=== PATIENT | female | born 1980 | race Hispanic/Latino ===

== ENCOUNTER 2018-04-29 13:07 | Emergency (ER) | payer OTHER ==
[2018-04-29 13:25] LABS: BASOPHILS % (AUTO) 1.1 % (0.0-5.0); LYMPHOCYTES % (AUTO) 56.5 % (21.0-51.0); MEAN CORPUSCULAR HEMOGLOBIN 31.1 pg (27.0-33.0); MEAN CORPUSCULAR HGB CONC 34.4 g/dL (32.0-36.0); MEAN CORPUSCULAR VOLUME 90.3 fL (79-99); MONOCYTES % (AUTO) 7.8 % (3.0-13.0); NEUTROPHILS % (AUTO) 30.6 % (40.0-77.0); NUCLEATED RED BLOOD CELLS 0.1 % (0.0-0.19); PLATELET COUNT (AUTO) 283 K/uL (130-400); RED BLOOD CELL COUNT(AUTO) 4.21 MIL/uL (4.00-5.50); RED CELL DISTRIBUTION WIDTH 14.6 % (11.0-15.5); WHITE BLOOD COUNT (AUTO) 5.2 K/uL (4.8-10.8)
[2018-04-29 13:35] LABS: CREATININE 0.6 mg/dL (0.5-1.5); POTASSIUM 3.7 mmol/L (3.5-5.1)
[2018-04-29 13:38] LABS: INR 1.02 (0.85-1.15); PARTIAL THROMBOPLASTIN TIME 27.1 SEC (26.3-35.5); PROTHROMBIN TIME 10.7 SEC (9.6-11.6)
[2018-04-29 13:39] LABS: ALBUMIN 3.5 g/dL (3.5-5.0); BILIRUBIN,TOTAL 0.5 mg/dL (0.2-1.0); TOTAL PROTEIN, SERUM 7.1 g/dL (6.0-8.3)
[2018-04-29] MEDS ORDERED: KETOROLAC TROMETHAMINE 30MG/ML ONE (15:08)
[2018-04-29] MEDS ORDERED: SODIUM CHLORIDE 0.9% 1000ML 1,000 ML IV ONE (15:08)
== END 2018-04-29 16:02 | disposition home or self-care (01) ==
LOC: EDH 13:07
DX: R07.89 Other chest pain (principal); G89.4 Chronic pain syndrome; Z88.0 Allergy status to penicillin; Z90.49 Acquired absence of other specified parts of digestive tract; Z98.890 Other specified postprocedural states; Z79.899 Other long term (current) drug therapy
CPT/HCPCS: 36415; 71045; 80053; 82550; 84484; 85025; 85610; 85730; 93005; 96374; 99284; J1885; J7030

== ENCOUNTER 2024-04-16 17:15 | Emergency (ER) | payer SELFPAY ==
[~2024-04-16] VITALS: Ht 160 cm; Wt 68.0 kg
--- NOTE | 2024-04-16 17:29 | ERN ---
ED Note History of Present Illness Stated Complaint: RUQ ABOMINAL, NAUSEA Chief Complaint: Abdominal Pain Time Seen by MD: 17:21 Dictation: PATIENT IS A 44-YEAR-OLD FEMALE COMING IN TODAY WITH INTERMITTENT AND COLICKY RIGHT UPPER QUADRANT PAIN WITH NAUSEA ONSET TWO DAYS PRIOR TO ARRIVAL. NO FEVER NO CHILLS NO BACK PAIN NO CHANGE IN URINATION. SHE STATES SHE HAS NO PRIMARY CARE DOCTOR, STATES THE PAIN IS WORSE AFTER FOOD. Allergies: Coded Allergies: Penicillins (Unverified Allergy, Unknown, 04/16/24) Home Meds Active Scripts Omeprazole (Omeprazole) 40 Mg Capsule.dr, 1 CAP PO DAILY for 30 Days, #30 CAP 0 Refills Prov:MARIELLE COMER READY TO WEAR DEPARTMENT MANAGER 04/16/24 Sucralfate (Carafate) 1 Gram Tablet, 1 GM PO ACHS for 10 Days, #40 TAB Prov:MARIELLE COMER READY TO WEAR DEPARTMENT MANAGER 04/16/24 Past Medical History Past Medical History: No Pertinent History Surgical History: Cholecystectomy, PSYCH History: no pertinent psych hx History: Not Applicable RN Note Reviewed/Agreed w/PFSH: Yes Review of System Dictation CONSTITUTIONAL: NEGATIVE EXCEPT FOR HPI HEAD/FACE: NEGATIVE EXCEPT FOR HPI EENT: NEGATIVE EXCEPT FOR HPI RESPIRATORY: NEGATIVE EXCEPT FOR HPI GASTROINTESTINAL/ABDOMINAL: NEGATIVE EXCEPT FOR HPI RIGHT UPPER QUADRANT PAIN NAUSEA GENITOURINARY: NEGATIVE EXCEPT FOR HPI MUSCULOSKELETAL: NEGATIVE EXCEPT FOR HPI INTEGUMENTARY: NEGATIVE EXCEPT FOR HPI NEUROLOGICAL/PSYCH: NEGATIVE EXCEPT FOR HPI HEMATOLOGIC/LYMPHATIC: NEGATIVE EXCEPT FOR HPI ALL SYSTEMS NEGATIVE, EXCEPT NOTED ABOVE. 13 POINT REVIEW OF SYSTEMS ASSESSED AND ALL NEGATIVE EXCEPT FOR ABOVE. Initial Vital Sign VS Vital Signs Date Time Temp Pulse Resp B/P (MAP) Pulse Ox O2 Delivery O2 Flow Rate FiO2 04/16/24 17:16 98.8 85 14 110/62 98 Room Air 0 04/16/24 18:48 21 Physical Exam Dictation VITAL SIGNS REVIEWED GENERAL APPEARANCE: ALERT, ORIENTED X 3, MILD ACUTE DISTRESS, WELL DEVELOPED, NOURISHED. HEAD AND FACE: NON-TRAUMATIC. EYES: PERRL, PINK CONJUNCTIVAS, EYELID NO TRAUMA, ANTERIOR CHAMBER WITH ARCUS S ENILIS. EARS: PINNAS INTACT AND NO SIGNS OF TRAUMA OR ERYTHEMA EAR CANALS CLEAR AND NO DISCHARGE TM NO ERYTHEMA NOSE: NO DISCHARGE, NO BLEEDING. OROPHARYNX: MOUTH NORMAL, TONGUE PINK, PHARYNX CLEAR,NO ERYTHEMA, TONSILS NO EXUDATES, NO ABSCESSES NOTED, MUCOUS MEMBRANE MOIST NECK: SUPPLE, NON-TENDER, NO THYROMEGALY, NO MASSES, NO JVD, NO BRUITS BREAST:DEFERRED CHEST:NO TENDERNESS, NO CREPITUS, NO PARADOXICAL MOVEMENT, NO RETRACTIONS LUNGS:CLEAR, WELL-VENTILATED, SYMMETRIC, NO RALES, NO WHEEZING, NO RHONCHI, NO STRIDOR, GOOD BREATH SOUNDS BILATERALLY HEART: REGULAR RATE, REGULAR RHYTHM, NO MURMUR, NO GALLOPS VASCULAR: NO PERIPHERAL EDEMA, ABDOMEN: SOFT, POSITIVE BOWEL SOUNDS, NONDISTENDED, NO GUARDING, NONTENDER, NO REBOUND, NO MASSES NO HEPATOMEGALY, NO SPLENOMEGALY, NO JOY'S SIGN, NO HERNIAS. RECTAL: DEFERRED GENITAL: DEFERRED NEUROLOGICAL: NORMAL SPEECH, MOTOR FUNCTION INTACT, SENSORY FUNCTION INTACT MUSCULOSKELETAL: NECK NONTENDER, FULL RANGE OF MOTION, BACK NONTENDER, FULL RANGE OF MOTION, EXTREMITIES: NONTENDER, FULL RANGE OF MOTION SKIN: COLOR PINK, DRY, NO TURGOR, NO RASH, NO LACERATIONS, NO ABRASIONS, NO CONTUSIONS. LYMPHATIC: DEFERRED Results (Laboratory/Radiology) Laboratory/Radiology Laboratory Tests Test 04/16/24 17:59 White Blood Count 5.7 K/uL (4.8-10.8) Red Blood Count 3.77 MIL/uL (4.00-5.50) L Hemoglobin 7.2 g/dL (12.0-16.0) L Hematocrit 25.3 % (36-48) L Mean Corpuscular Volume 67.1 fL (79-99) L Mean Corpuscular Hemoglobin 19.1 pg (27.0-33.0) L Mean Corpuscular Hemoglobin Concent 28.5 g/dL (32.0-36.0) L Red Cell Distribution Width 18.1 % (11.0-15.5) H Platelet Count 386 K/uL (130-400) Mean Platelet Volume 10.5 fL (7.5-10.5) Immature Granulocyte % (Auto) 0.2 % (0-1) Neutrophils (%) (Auto) 59.9 % (40.0-77.0) Lymphocytes (%) (Auto) 30.2 % (21.0-51.0) Monocytes (%) (Auto) 6.8 % (3.0-13.0) Eosinophils (%) (Auto) 2.4 % (0.0-8.0) Basophils (%) (Auto) 0.5 % (0.0-5.0) Neutrophils # (Auto) 3.4 K/uL (1.8-7.7) Lymphocytes # (Auto) 1.7 K/uL (1.0-4.8) Monocytes # (Auto) 0.4 K/uL (0.1-1.0) Eosinophils # (Auto) 0.14 K/uL (0.00-0.70) Basophils # (Auto) 0.03 K/uL (0.00-0.20) Absolute Immature Granulocyte (auto 0.01 K/uL (0-1) Nucleated Red Blood Cells 0.0 % (0.0-0.19) Red Blood Cell Morphology See comments Sodium Level 135 mmol/L (136-145) L Potassium Level 3.3 mmol/L (3.5-5.1) L Chloride Level 99 mmol/L (101-111) L Carbon Dioxide Level 28 mmol/L (21-32) Blood Urea Nitrogen 11 mg/dL (7-18) Creatinine 0.6 mg/dL (0.5-1.0) Glomerular Filtration Rate Calc 113 mL/min (>90) Random Glucose 111 mg/dL (70-105) H Total Calcium 8.4 mg/dL (8.5-10.1) L RIGHT UPPER QUADRANT ULTRASOUND DEMONSTRATES PRIOR CHOLECYSTECTOMY NO ABNORMAL FINDINGS Labs Reviewed?: Yes ED Course ED Course Orders Procedure Category Date Status Time Cbc With Differential LAB 04/16/24 Complete 17:26 Us Abdominal Ruq\Ltd US 04/16/24 Resulted 17:26 0.9%Nacl 1000ml (Ns PHA 04/16/24 Complete 1000ml) 17:30 Ketorolac PHA 04/16/24 Complete Tromethamine 30mg/Ml 17:30 Ondansetron 4mg Inj PHA 04/16/24 Complete (Zofran 4mg Inj) 17:30 Basic Metabolic Panel LAB 04/16/24 Complete 17:26 Potassium Bicarb/Cit PHA 04/16/24 Complete Ac 25meq (K-Lyte Ta 19:00 Current Medications Medications (Trade) Dose Ordered Sig/Edenilson Route PRN Reason Start Time Stop Time Status Last Admin Dose Admin Ketorolac Tromethamine (toRADol) 30 mg ONCE ONCE IVP 04/16/24 17:30 04/16/24 17:31 DC 04/16/24 18:43 Ondansetron HCl (zoFRAN 4MG INJ) 4 mg ONCE ONCE IVP 04/16/24 17:30 04/16/24 17:31 DC 04/16/24 18:44 Potassium Bicarbonate (K-Lyte Tablet Eff 25 Meq Tablet.eff) 25 meq ONCE ONCE PO 04/16/24 19:00 04/16/24 19:01 DC 04/16/24 18:46 Sodium Chloride 1,000 ml @ 0 mls/hr ONCE ONCE IV 04/16/24 17:30 04/16/24 17:31 DC 04/16/24 18:43 Vital Signs Date Time Temp Pulse Resp B/P (MAP) Pulse Ox O2 Delivery O2 Flow Rate FiO2 04/16/24 18:48 97.9 79 18 114/62 100 Room Air* 0 21 04/16/24 17:16 98.8 85 14 110/62 98 Room Air 0 1925, PAIN IS CONTROLLED AFTER TREATMENT. ADDITIONALLY POTASSIUM IS 3.3 AND WAS REPLACED PATIENT WILL BE DISCHARGED HOME WITH A ACUTE GASTRITIS WITH CARAFATE AND OMEPRAZOLE GIVEN INSTRUCTIONS TO FOLLOW UP WITH HER DOCTOR IN 1-2 DAYS. Medical Decision Making MDM MEDICAL DISCHARGE MAKING BASED ON ABDOMINAL WORKUP TO INCLUDE LABS AND RIGHT UPPER QUADRANT ULTRASOUND. SURGICAL ABSENT GALLBLADDER, LABS ARE NORMAL EXCEPT FOR HYPOKALEMIA. POTASSIUM WAS REPLACED AND PAIN MANAGED WITH PEPCID DX & DISP Disposition: Discharge Departure Impression: Primary Impression: Acute gastritis Additional Impression: Hypokalemia Condition: Stable Scripts Omeprazole (Omeprazole) 40 Mg Capsule.dr 1 CAP PO DAILY for 30 Days, #30 CAP 0 Refills Prov: MARIELLE COMER NP 04/16/24 Sucralfate (Carafate) 1 Gram Tablet 1 GM PO ACHS for 10 Days, #40 TAB Prov: MARIELLE COMER READY TO WEAR DEPARTMENT MANAGER 04/16/24 Additional Instructions: FOLLOW-UP WITH PRIMARY CARE PROVIDER IN 1 TO 2 DAYS. TAKE MEDICATIONS DIRECTED HERE IN THE EMERGENCY ROOM. OKAY TO CONTINUE HOME MEDICATIONS UNLESS OTHERWISE DISCUSSED DURING YOUR VISIT IN THE EMERGENCY ROOM TODAY. RETURN TO YOUR NEAREST EMERGENCY ROOM IF SYMPTOMS WORSEN OR IF THERE IS NO IMPROVEMENT. CALL 911 IF YOU NEED IMMEDIATE ASSISTANCE. TAKE TYLENOL OR MOTRIN [id number] NEEDED AND IF NO CONTRAINDICATIONS ARE PRESENT. INCREASE ORAL HYDRATION. A WOUND CULTURE OR URINE CULTURE WAS ORDERED HERE IN THE EMERGENCY ROOM DEPARTMENT PLEASE FOLLOW-UP WITH PRIMARY CARE PROVIDER AND ADVISE THEM TO GET REPEAT PORTS FROM OUR FACILITY. IF YOU HAD ANY KALA WRAP/SPLINTS THAT WERE APPLIED HERE, PLEASE DO NOT REMOVE THEM UNTIL YOU SEE YOUR PRIMARY CARE OR SPECIALTY. TAKE CARAFATE DIRECTED UNTIL GONE. TAKE OMEPRAZOLE DAILY DIRECTED. , FOLLOW A BLAND DIET WITH WATER FOR FLUIDS ONLY. NO ALCOHOL/NO TOBACCO NO SPICY FOODS NO ICE TEA NO SODA POP NO CITRUS FRUIT JUICE UNTIL CLEARED BY YOUR DOCTOR Referrals: SELF,REFERRAL (PCP) Time of Disposition: 19:27 I have reviewed the case, and I agree with, Diagnosis and Plan MARIELLE COMER NP Apr 16, 2024 17:29 KALYN TAYLOR DO Apr 19, 2024 07:03
--- NOTE | 2024-04-16 18:01 | HMCIMG ---
US ABDOMINAL RUQ\E\LTD HISTORY: Abdominal pain COMPARISON: None TECHNIQUE: Right upper quadrant abdominal ultrasound study was performed. FINDINGS: Portal vein is patent. The visualized portion of the pancreas is within normal limits. Liver measures 15 cm. Gallbladder has been removed. Common duct measures 5 mm. Right kidney measures 9.8 x 4.8 x 4cm. No hydronephrosis is seen of the right kidney. IMPRESSION: 1. Post cholecystectomy. No ductal dilatation is seen. 2. No hydronephrosis is seen.
[2024-04-16 18:05] LABS: BASOPHILS # (AUTO) 0.03 K/uL (0.00-0.20); BASOPHILS % (AUTO) 0.5 % (0.0-5.0); EOSINOPHILS # (AUTO) 0.14 K/uL (0.00-0.70); EOSINOPHILS % (AUTO) 2.4 % (0.0-8.0); HEMATOCRIT 25.3 % (36-48); IMMATURE GRANULOCYTE ABSOLUTE 0.01 K/uL (0-1); LYMPHOCYTES # (AUTO) 1.7 K/uL (1.0-4.8); LYMPHOCYTES % (AUTO) 30.2 % (21.0-51.0); MEAN CORPUSCULAR HEMOGLOBIN 19.1 pg (27.0-33.0); MEAN CORPUSCULAR HGB CONC 28.5 g/dL (32.0-36.0); MEAN CORPUSCULAR VOLUME 67.1 fL (79-99); MONOCYTES # (AUTO) 0.4 K/uL (0.1-1.0); MONOCYTES % (AUTO) 6.8 % (3.0-13.0); NEUTROPHILS # (AUTO) 3.4 K/uL (1.8-7.7); NEUTROPHILS % (AUTO) 59.9 % (40.0-77.0); PLATELET COUNT (AUTO) 386 K/uL (130-400); RED BLOOD CELL COUNT(AUTO) 3.77 MIL/uL (4.00-5.50); RED CELL DISTRIBUTION WIDTH 18.1 % (11.0-15.5); WHITE BLOOD COUNT (AUTO) 5.7 K/uL (4.8-10.8)
[2024-04-16 18:13] LABS: CREATININE 0.6 mg/dL (0.5-1.0); POTASSIUM 3.3 mmol/L (3.5-5.1)
[2024-04-16] MEDS: 0.9%NACL 1000ML 1,000 ML IV ONE (18:43)
[2024-04-16] MEDS: ketOROlac 30MG VIAL (30MG/ML) IVP ONE (18:43)
[2024-04-16] MEDS: ondanSETRON 4MG INJ IVP ONE (18:44)
[2024-04-16] MEDS: PoTASSium BIcarbonate/CIT AC 25 MEQ TABLET.EFF PO ONE (18:46)
[2024-04-16 18:48] VITALS: BP 114/62; PULSE 79; RESP 18; TEMP 97.8; O2SAT 100
[2024-04-16] MEDS ORDERED: SUCR1TAB28 PO (19:28)
[2024-04-16] MEDS ORDERED: OMEP40CA21 PO (19:28)
== END 2024-04-16 19:36 | disposition home or self-care (01) ==
LOC: EDH 17:15
DX: K29.00 Acute gastritis without bleeding (principal); E87.6 Hypokalemia; Z88.0 Allergy status to penicillin; Z90.49 Acquired absence of other specified parts of digestive tract
CPT/HCPCS: 99285; 96374; 76705; 96361; 96375; 80048; 85025; 36415; J7030; J2405; J1885